=== PATIENT | female | born 1985 | race African-American/Black ===

== ENCOUNTER → 2019-11-26 | Outpatient (CLI) | payer OTHER | LOC: MHCPAIN 12:57 | DX: M54.5 Low back pain (principal); M54.12 Radiculopathy, cervical region; G89.29 Other chronic pain | CPT/HCPCS: G0463 ==

== ENCOUNTER → 2019-12-12 | Outpatient (CLI) | payer OTHER | LOC: MHCPAIN 13:11 | DX: M54.2 Cervicalgia (principal) ==

== ENCOUNTER → 2020-08-11 | Outpatient (CLI) | payer OTHER | LOC: MHCPAIN 10:01 | DX: M47.812 Spondylosis without myelopathy or radiculopathy, cervical region (principal); M54.2 Cervicalgia; R51.9 Headache, unspecified; G89.29 Other chronic pain | CPT/HCPCS: G0463 ==

== ENCOUNTER → 2020-08-12 | Outpatient (CLI) | payer OTHER | LOC: MHCPAIN 13:47 | DX: M79.18 Myalgia, other site (principal); M54.2 Cervicalgia | CPT/HCPCS: J1040 ==